=== PATIENT | female | born 1975 | race Caucasian/White ===

== ENCOUNTER 2016-11-08 08:00 | Outpatient (CLI) | payer BC ==
[2016-09-20 16:27] VITALS: BMI 29.0
[~2016-11-08 08:00] MED LIST: AMITIZA24 MCG PO; BUSPAR 15 MG TA15 MG PO; MOBIC7.5 MG PO; RELPAX40 MG PO; SYNTHROID50 MCG PO; SYNTHROID75 MCG PO; XANAX0.25 MG PO; ZANAFLEX4 MG PO; ZYRTEC10 MG PO
== END 2016-11-08 23:59 | disposition home or self-care (01) ==
LOC: D.MAMMO 08:00
DX: R92.8 Other abnormal and inconclusive findings on diagnostic imaging of breast (principal)

== ENCOUNTER 2017-08-10 14:59 | Emergency (ER) | payer BC ==
[2016-09-20 16:27] VITALS: BMI 29.0
[2017-08-10 15:32] LABS: BASOPHILS 0.3 % (0-2); EOSINOPHILS 1.8 % (0-7); HEMOGLOBIN 14.4 g/dL (12-16); IMMATURE GRANULOCYTES 0.1 % (0-5); LYMPHOCYTES 36.5 % (15-50); MCH 32.5 pg (26.0-34.0); MCHC 33.5 g/dL (31.0-37.0); MCV 97.1 fL (80.0-100.0); MONOCYTES 5.2 % (2-11); NEUTROPHILS 56.1 % (40-80); RBC 4.43 10x6/uL (4.00-5.40); RDW 12.6 % (11.5-14.5); WBC 6.7 10x3/uL (4.8-10.8)
[2017-08-10 15:33] LABS: PLATELET COUNT 221 10x3/uL (130-400)
[2017-08-10 15:42] LABS: APPEARANCE CLEAR (CLEAR); BILIRUBIN NEGATIVE (NEGATIVE); COLOR YELLOW (YELLOW); GLUCOSE NEGATIVE (NEGATIVE); KETONE NEGATIVE (NEGATIVE); NITRITE NEGATIVE (NEGATIVE); PROTEIN NEGATIVE (NEGATIVE); SPECIFIC GRAVITY 1.015 (1.005-1.020); UROBILINOGEN NORMAL (NORMAL)
[2017-08-10 15:43] LABS: RED CELLS - URINE OCC /hpf (0-5); WHITE CELLS - URINE OCC /hpf (0-5)
[2017-08-10 15:44] LABS: BACTERIA FEW /hpf (NONE SEEN); EPITHELIAL CELLS 0-5 /hpf (0-5)
[2017-08-10 17:07] LABS: ALBUMIN 4.5 g/dL (3.4-5.0); ANION GAP 12.4 mmol/L (8-16); BILIRUBIN - TOTAL 0.31 mg/dL (0.2-1.3); CALCIUM 9.6 mg/dL (8.5-10.1); CARBON DIOXIDE 29.6 mmol/L (21.0-32.0); PROTEIN - SERUM 7.6 g/dL (6.4-8.2)
[2017-08-17] MEDS ORDERED: ESTRACE 0.5 MG0.5 MG PO (13:44)
== END 2017-08-10 19:20 | disposition home or self-care (01) ==
LOC: D.ER 14:59
PROVIDERS: Emergency Medicine; Physician Assistant
DX: K80.20 Calculus of gallbladder without cholecystitis without obstruction (principal); R10.11 Right upper quadrant pain

== ENCOUNTER 2017-08-20 08:31 | Day surgery (SDC) | payer BC ==
[~2017-08-20] VITALS: Ht 170.2 cm; Wt 80.5 kg
[2017-08-20] VITALS (10 sets, daily range): BP systolic 94–138; BP diastolic 32–75; BMI 27.8
[~2017-08-20 08:31] MED LIST changes: +ESTRACE 0.5 MG0.5 MG PO
[2017-08-20 09:25] LABS: HEMOGLOBIN 15.2 g/dL (12-16); MCH 32.6 pg (26.0-34.0); MCHC 33.8 g/dL (31.0-37.0); MCV 96.6 fL (80.0-100.0); MEAN PLATELET VOLUME 8.9 fL (7.4-10.4); RBC 4.66 10x6/uL (4.00-5.40); RDW 12.9 % (11.5-14.5); WBC 5.6 10x3/uL (4.8-10.8)
[2017-08-20] MEDS ORDERED: PROBIOTIC1 EAC1 PO (09:39)
[2017-08-20 13:00] LABS: MCH 32.6 pg (26.0-34.0); MCHC 33.6 g/dL (31.0-37.0); MEAN PLATELET VOLUME 9.1 fL (7.4-10.4); PLATELET COUNT 256 10x3/uL (130-400); RDW 12.8 % (11.5-14.5)
[2017-08-20 13:10] LABS: HEMATOCRIT 28.9 % (36.0-48.0); HEMOGLOBIN 9.7 g/dL (12-16); RBC 2.98 10x6/uL (4.00-5.40); WBC 8.7 10x3/uL (4.8-10.8)
[2017-08-20 14:14] LABS: EOSINOPHILS 2 % (0-7); LYMPHOCYTES 46 % (15-50); MONOCYTES 6 % (2-11); NEUTROPHILS 45 % (40-80)
[2017-08-20 14:15] LABS: PLATELET ESTIMATE NORMAL
--- NOTE | 2017-08-20 14:45 | NUR ---
RECEIVED TO ROOM 2215 FROM RECOVERY ROOM VIA. VSS. SCDs TO BLE. LAP SITES X4. ORIENTED TO ROOM AND CALL LIGHT SYSTEM. CUP OF ICE WATER GIVEN TO PATIENT. CARE PLAN REVIEWED. [place] PLACED IN FOR MEASUREMENT OF URINE. FAMILY AT BEDSIDE. VOCATIONAL SCHOOL TEACHER INITIATED. CALL LIGHT IN REACH. WILL CONTINUE WITH PLAN OF CARE.
--- NOTE | 2017-08-20 14:48 | OP ---
PATIENT NAME: STEPHANIA DELANEY MEDICAL RECORD: [id number] :73 LOCATION:[id number] ADMISSION DATE: SURGEON: MP CHRISTOPHER MD DATE OF OPERATION: 08/20/2017 DATE OF OPERATION: 08/20/2017 SURGEON: Mp Christopher MD PREOPERATIVE DIAGNOSES: 1. Symptomatic cholelithiasis. 2. Right upper quadrant pain. POSTOPERATIVE DIAGNOSES: 1. Symptomatic cholelithiasis. 2. Right upper quadrant pain. PROCEDURE PERFORMED: Laparoscopic cholecystectomy, exploratory laparotomy. ANESTHESIA: General. COMPLICATIONS: None. SPECIMENS: Gallbladder. Case was clean contaminated. ESTIMATED BLOOD LOSS: 750 cc. ANESTHESIA: General. OPERATIVE COURSE: After consent was obtained, the patient was taken to the operating room and placed in the supine position on the operating table. Next, general anesthesia was given via endotracheal intubation after a timeout was performed that confirmed the correct patient and procedure. The abdomen was prepped and draped in typical sterile fashion. Local anesthetic was injected just above the umbilicus. A stab incision was made with 11-blade scalpel. Using a 5-mm bladeless optical trocar, the abdomen was entered under direct laparoscopic vision. Adequate pneumoperitoneum was achieved. As the abdominal cavity was inspected, there was noted there was a mesenteric vessel injury. Two 5-mm trocars were then placed in the right lateral quadrant. The vessel was controlled with direct pressure with laparoscopic instruments. The vessel injury was able to be repaired laparoscopically while holding pressure, a small midline incision was made where the previous umbilical trocar was. Luis retractor was placed. The abdomen was then copiously irrigated and suctioned. The mesenteric vessel injury was isolated. Hemostasis was obtained once control of the vessel was obtained using 3-0 Vicryl suture. Once this was complete, the abdomen was again copiously irrigated and suctioned. An Luis retractor was placed in the midline incision, a Gelport was placed. A trocar was placed through the Gelport. The patient was placed in the steep reverse Trendelenburg position. An 11-mm trocar was placed in the subxiphoid position. The fundus of the gallbladder was then grasped and retracted cephalad. The infundibulum was grasped and retracted laterally. The peritoneum was incised using electrocautery. The gallbladder was dissected until the critical view was obtained, cystic lateral, cystic artery medial, liver in the posterior window. OPERATIVE REPORT [id number] STEPHANIA DELANEY Three clips were placed in the proximal cystic duct, 1 clip distal and 2 clips were placed in the proximal cystic artery, 1 clip distal. The duct and artery were then transected with laparoscopic Metzenbaum scissors. The remaining portion of the gallbladder was dissected off the liver bed using electrocautery. Once complete, the abdomen was desufflated, Gelport was removed. The gallbladder specimen was removed through the midline incision and sent for permanent pathology. At this time, the abdomen was copiously irrigated and suctioned. The area of mesenteric injury was again inspected, it was monitored for approximately 5 minutes, there were no further signs of bleeding. The abdomen was reinsufflated. The liver bed was meticulously irrigated and suctioned. There was no evidence of bleeding, no evidence of bile leak, no evidence of bowel injury. At this time, all remaining instruments were removed. The abdomen was desufflated. The Gelport was removed. The fascia was closed with a #1 looped PDS. Subcutaneous tissue was reapproximated using 3-0 Vicryl suture. All skin incisions were closed with 4-0 Monocryl, Mastisol and Steri-Strips. At the end of the case, all needle and instrument counts were correct. No complications occurred. The patient was extubated and transferred to the PACU in stable condition. TRANSINT:[id number] Voice Confirmation ID: [id number] DOCUMENT ID: [id number] MP CHRISTOPHER MD at 1448 CC: [id number] DICTATION DATE: 08/20/17 1345 AIR ROUTE CONTROLLER: 08/20/17 1438 [facility] [address] [place] [address]
--- NOTE | 2017-08-20 16:30 | NUR ---
PROTONIX 40 MG SIVP. STATES SHE IS HAVING VERY BAD GAS PAINS. EXPLAINED TO PATIENT THAT SHE NEEDS TO GET UP AND WALK IN HALLWAYS AND ONE OF US CAN WALK WITH HER. STATES SHE IS TOO WEAK AND DIZZY TO GET UP. I EXPLAINED TO HER THAT LATER SHE WOULD HAVE TO WALK BECAUSE THE EARLIER SHE WALKS THE BETTER. PATIENT VERBALIZED UNDERSTANDING.
[2017-08-20 17:01] LABS: HEMATOCRIT 31.2 % (36.0-48.0); HEMOGLOBIN 10.2 g/dL (12-16); MCH 32.5 pg (26.0-34.0); MCHC 32.7 g/dL (31.0-37.0); MEAN PLATELET VOLUME 8.9 fL (7.4-10.4); RBC 3.14 10x6/uL (4.00-5.40); RDW 12.9 % (11.5-14.5)
[2017-08-20 17:17] LABS: MCV 99.4 fL (80.0-100.0)
[2017-08-20 17:48] LABS: ANION GAP 15.1 mmol/L (8-16); CARBON DIOXIDE 21.3 mmol/L (21.0-32.0); CREATININE - SERUM 0.9 mg/dL (0.6-1.3); POTASSIUM - SERUM 3.4 mmol/L (3.5-5.1)
[2017-08-20 17:51] LABS: CALCIUM 6.8 mg/dL (8.5-10.1)
--- NOTE | 2017-08-20 18:21 | NUR ---
HAS NOT VOIDED. EXPLAINED TO PATIENT THAT SHE HAS 4-6 MORE HOURS TO VOID. VERBALIZED UNDERSTANDING. SCDs TO BLE. FAMILY IN ROOM. CALL LIGHT IN REACH. WILL CONTINUE WITH PLAN OF CARE.
--- NOTE | 2017-08-20 20:02 | NUR ---
PATIENT RESTING IN BED WITH FAMILY AT BEDSIDE AND DENIES NEEDS AT THIS TIME. BED IN LOWEST POSITION AND CALL LIGHT WITHIN REACH. ENCOURAGED THE FAMILY AND PATIENT TO CALL IF SHE HAS NEEDS.
--- NOTE | 2017-08-20 20:19 | NUR ---
PATIENT REFUSED MOM STATING SHE HAD DIARRHEA ON SUNDAY AND HAD 12 BM'S
--- NOTE | 2017-08-20 22:56 | NUR ---
SPOKE WITH [employer] AND FAXED ORDER FOR CALCIUM GLUCONATE
[2017-08-20 23:38] LABS: HEMATOCRIT 26.7 % (36.0-48.0); HEMOGLOBIN 9.1 g/dL (12-16); MCH 32.5 pg (26.0-34.0); MCHC 34.1 g/dL (31.0-37.0); MEAN PLATELET VOLUME 8.6 fL (7.4-10.4); RBC 2.8 10x6/uL (4.00-5.40); RDW 12.8 % (11.5-14.5)
[2017-08-20 23:40] LABS: MCV 95.4 fL (80.0-100.0); WBC 11.6 10x3/uL (4.8-10.8)
[2017-08-21 01:21] VITALS: BP 108/59; Ht 170.2 cm; Wt 80.5 kg
[2017-08-21 04:00] VITALS: BP 104/53
[2017-08-21 06:15] LABS: HEMATOCRIT 24.3 % (36.0-48.0); HEMOGLOBIN 8.2 g/dL (12-16); MCH 32.3 pg (26.0-34.0); MCHC 33.7 g/dL (31.0-37.0); MCV 95.7 fL (80.0-100.0); MEAN PLATELET VOLUME 8.7 fL (7.4-10.4); RBC 2.54 10x6/uL (4.00-5.40); RDW 12.9 % (11.5-14.5); WBC 9.4 10x3/uL (4.8-10.8)
[2017-08-21 06:29] LABS: ANION GAP 14.2 mmol/L (8-16); CALCIUM 7.9 mg/dL (8.5-10.1); CARBON DIOXIDE 23.1 mmol/L (21.0-32.0); CREATININE - SERUM 0.9 mg/dL (0.6-1.3)
[2017-08-21 06:30] LABS: POTASSIUM - SERUM 4.3 mmol/L (3.5-5.1)
--- NOTE | 2017-08-21 08:00 | NUR ---
AWAKE AND ALERT. ORIENTED X3. C/O HEADACHE THIS AM. WILL MONITOR. LUNGS ARE CLEAR BILATERALLY, NO COUGH NOTED. SKIN IS INTACT WITHOUT REDNESS EXCEPT INCISIONS TO ABDOMEN WHICH ARE DRY AND INTACT WITHOUT REDNESS. IV TO LEFT HAND IS PATENT WITHOUT REDNESS AT INSERTION SITE. SL TO RIGHT HAND REDDENED. D/C WITH CATHETER INTACT. WARM MOIST HEAT APPLIED TO AREA. WILL MONITOR. DENIES NEEDS.
[2017-08-21 08:20] VITALS: BP 138/71
--- NOTE | 2017-08-21 09:15 | NUR ---
REQUESTED AND GIVEN ONE HYDROCODONE PO FOR C/O ABDOMINAL PAIN LEVEL 5. WILL MONITOR.
--- NOTE | 2017-08-21 10:00 | NUR ---
RESTING QUIETLY. DENIES NEEDS.
[2017-08-21 11:37] VITALS: BP 115/68
--- NOTE | 2017-08-21 12:15 | NUR ---
LUNCH SERVED IN ROOM. ATE ALL SHE WANTED WITHOUT NAUSEA OR PAIN.
[2017-08-21 13:13] LABS: BASOPHILS 0.3 % (0-2); EOSINOPHILS 0.5 % (0-7); HEMATOCRIT 23.6 % (36.0-48.0); IMMATURE GRANULOCYTES 0.3 % (0-5); LYMPHOCYTES 25.3 % (15-50); MCH 32.5 pg (26.0-34.0); MCHC 33.9 g/dL (31.0-37.0); MCV 95.9 fL (80.0-100.0); MEAN PLATELET VOLUME 8.9 fL (7.4-10.4); MONOCYTES 4.9 % (2-11); NEUTROPHILS 68.7 % (40-80); PLATELET COUNT 203 10x3/uL (130-400); RBC 2.46 10x6/uL (4.00-5.40); WBC 7.7 10x3/uL (4.8-10.8)
[2017-08-21] MEDS ORDERED: HYDROCODON-ACE1 EAC7 PO (13:23)
[2017-08-21 14:00] VITALS: BP 105/65
[2017-08-21 14:15] VITALS: BP 110/63
--- NOTE | 2017-08-21 15:00 | NUR ---
DISCHARGED TO HOME AMBULATORY WITH FAMILY. DISCHARGE INSTRUCTIONS GIVEN BOTH VERBALLY AND WRITTEN. ALL QUESTIONS ANSWERED. PATIENT VERBALIZED UNDERSTANDING OF SAME. NEW PRESCRIPTIONS GIVEN TO PATIENT. IV TO LEFT WRIST D/C WITH CATHETER INTACT. ALL BELONGINGS WITH PATIENT.
== END 2017-08-21 15:00 | disposition home or self-care (01) ==
LOC: D.OPS 08:31 → D.PAN 11:00 → D.OPS 11:00 → D.MS 14:08 → D.OPS 08-21 15:00
PROVIDERS: Anesthesiology; Surgery
DX: K80.20 Calculus of gallbladder without cholecystitis without obstruction (principal); R10.11 Right upper quadrant pain; Z01.812 Encounter for preprocedural laboratory examination

== ENCOUNTER 2017-08-24 13:19 | Observation (INO) | payer BC ==
[~2017-08-24] VITALS: Ht 170.2 cm; Wt 79.8 kg
[~2017-08-24 13:19] MED LIST changes: +HYDROCODON-ACE1 EAC7 PO; +PROBIOTIC1 EAC1 PO
[2017-08-24 15:08] LABS: BASOPHILS 0.3 % (0-2); EOSINOPHILS 4.4 % (0-7); IMMATURE GRANULOCYTES 0.2 % (0-5); MCH 32.7 pg (26.0-34.0); MCHC 33.3 g/dL (31.0-37.0); MEAN PLATELET VOLUME 8.4 fL (7.4-10.4); MONOCYTES 5.7 % (2-11); NEUTROPHILS 67.4 % (40-80); RBC 2.45 10x6/uL (4.00-5.40); RDW 13.4 % (11.5-14.5); WBC 6.3 10x3/uL (4.8-10.8)
[2017-08-24 15:18] LABS: PLATELET COUNT 283 10x3/uL (130-400)
[2017-08-24 15:31] LABS: ALBUMIN 3.5 g/dL (3.4-5.0); ALKALINE PHOSPHATASE 67 U/L (46-116); ALT (SGPT) 25 U/L (10-68); APPEARANCE CLEAR (CLEAR); BILIRUBIN NEGATIVE (NEGATIVE); BILIRUBIN - TOTAL 1.01 mg/dL (0.2-1.3); CALC OSMOLALITY 282 mosm/kg (275-300); CALCIUM 8.8 mg/dL (8.5-10.1); CARBON DIOXIDE 28.3 mmol/L (21.0-32.0); CHLORIDE - SERUM 105 mmol/L (98-107); COLOR YELLOW (YELLOW); CREATININE - SERUM 0.7 mg/dL (0.6-1.3); GLUCOSE 113 mg/dL (74-106); GLUCOSE NEGATIVE (NEGATIVE); KETONE NEGATIVE (NEGATIVE); NITRITE NEGATIVE (NEGATIVE); POTASSIUM - SERUM 3.5 mmol/L (3.5-5.1); PROTEIN NEGATIVE (NEGATIVE); PROTEIN - SERUM 6.8 g/dL (6.4-8.2); SODIUM 143 mmol/L (136-145); UREA NITROGEN 4 mg/dL (7-18); UROBILINOGEN NORMAL (NORMAL); eGFR NON AFRICAN AMERICAN > 90 mL/min (90-120)
[2017-08-24 15:39] LABS: BACTERIA FEW /hpf (NONE SEEN); EPITHELIAL CELLS 0-5 /hpf (0-5); RED CELLS - URINE 0-5 /hpf (0-5)
[2017-08-24] MEDS ORDERED: FERROUS FUMARA324 MG PO (23:27)
[2017-08-24 23:28] VITALS: BP 121/59; BMI 26.7
[2017-08-25] VITALS: BP 121/59
[2017-08-25 04:00] VITALS: BP 125/69
[2017-08-25 06:55] LABS: BASOPHILS 0.4 % (0-2); EOSINOPHILS 4.3 % (0-7); HEMATOCRIT 21.7 % (36.0-48.0); LYMPHOCYTES 19.2 % (15-50); MCH 32.6 pg (26.0-34.0); MCHC 33.2 g/dL (31.0-37.0); MCV 98.2 fL (80.0-100.0); MEAN PLATELET VOLUME 8.2 fL (7.4-10.4); MONOCYTES 7.8 % (2-11); NEUTROPHILS 68.3 % (40-80); PLATELET COUNT 238 10x3/uL (130-400); RBC 2.21 10x6/uL (4.00-5.40); RDW 13.4 % (11.5-14.5); WBC 5.6 10x3/uL (4.8-10.8)
[2017-08-25 07:04] LABS: HEMOGLOBIN 7.2 g/dL (12-16)
[2017-08-25 07:21] LABS: CALC OSMOLALITY 278 mosm/kg (275-300); CALCIUM 8.2 mg/dL (8.5-10.1); CARBON DIOXIDE 25.7 mmol/L (21.0-32.0); CHLORIDE - SERUM 105 mmol/L (98-107); CREATININE - SERUM 0.6 mg/dL (0.6-1.3); GLUCOSE 109 mg/dL (74-106); POTASSIUM - SERUM 3.9 mmol/L (3.5-5.1); SODIUM 141 mmol/L (136-145); UREA NITROGEN 5 mg/dL (7-18); eGFR NON AFRICAN AMERICAN > 90 mL/min (90-120)
--- NOTE | 2017-08-25 08:00 | NUR ---
ASSESSED AT THE TIME OF ADMISSION. PT IS ALERT AND ORIENTED, ABLE TO VERBALIZE NEEDS. HER STAYED WITH HER. DURING THE NIGHT SHE COMPLAINED ABOUT A SEVERE HEADACHE BUT WHEN OFFERED MORPHINE SHE REFUSED. STATED SHE HAD DEMEROL IN THE ER AND THOUGHT IT MADE IT WORSE. EARLIER THIS MORNING SHE REQUESTED NAUSEA MEDS AND RECEIVED IT. AT ABOUT 0600 THIS MORNING HER RELATIVE CAME IN AND ASKED IF WE WOULD CALL THE MD AND ASK FOR RELPAX FOR HER HEADACHE. WE CALLED AND GOT AN ORDER AND THE RUBBER PRODUCTION MACHINE OPERATOR WAS UNABLE TO GET IT SO WHEN PHARM CAME IN WE CALLED AND RECEIVED IT FROM THEM. THE PATIENT AND FAMILY THEN ASKED WHAT THE LAB RESULTS WERE AND WHEN THEY FOUND HER HEMOGLOBIN WAS DOWN TO 7.2 THEY BECAME UPSET AND DEMANDED TO BE TRANSFERED TO [facility]. DR CHRISTOPHER WAS CALLED WITH THE CRITICAL LAB AND THEN TOLD THAT THE PT WANTED TO BE TRANSFERED TO [facility]. HE SSTATED THIS WAS OK WITH HIM AND THE RUBBER PRODUCTION MACHINE OPERATOR WAS ADVISED. FAMILY AND PT WERE WORRIED ABOUT HER VITAL SIGNS AND THEY WERE TAKEN. T 98.9 HR 74 R 22 BP 127/56.
[2017-08-25 10:10] VITALS: BP 117/58
[2017-08-25 13:39] VITALS: BP 122/40
[2017-08-25 14:39] VITALS: Ht 170.2 cm; Wt 79.8 kg
--- NOTE | 2017-08-25 18:55 | NUR ---
PATIENT SITTING UP IN BED WITH IV INTACT. NO COMPLAINTS. RECIEVING 2ND UNIT OF BLOOD. NO OCMPLAINTS OR SIGNS OF DISTRESS. VS STABLE. CALL LIGHTW ITHIN REACH.
--- NOTE | 2017-08-25 21:05 | NUR ---
PATIENT RESTING IN BED WITH AT BEDSIDE. NO VISIBLE SIGNS OF DISTRESS. BED IN LOWEST POSITION AND CALL LIGHT WITHIN REACH. ENCOURAGED THE PATIENT TO CALL IF SHE HAS NEEDS.
[2017-08-26] VITALS: BP 105/70
[2017-08-26 04:00] VITALS: BP 108/63
[2017-08-26 06:03] LABS: BASOPHILS 0.3 % (0-2); EOSINOPHILS 4.9 % (0-7); MCH 32.4 pg (26.0-34.0); MCHC 34.5 g/dL (31.0-37.0); MEAN PLATELET VOLUME 8.6 fL (7.4-10.4); MONOCYTES 10.1 % (2-11); NEUTROPHILS 63.7 % (40-80); PLATELET COUNT 244 10x3/uL (130-400); RDW 16.1 % (11.5-14.5)
[2017-08-26 06:12] LABS: HEMATOCRIT 29.6 % (36.0-48.0); HEMOGLOBIN 10.2 g/dL (12-16); RBC 3.15 10x6/uL (4.00-5.40); WBC 7.3 10x3/uL (4.8-10.8)
[2017-08-26 06:27] LABS: CALC OSMOLALITY 280 mosm/kg (275-300); CALCIUM 8.2 mg/dL (8.5-10.1); CARBON DIOXIDE 26.7 mmol/L (21.0-32.0); CHLORIDE - SERUM 105 mmol/L (98-107); CREATININE - SERUM 0.6 mg/dL (0.6-1.3); GLUCOSE 130 mg/dL (74-106); POTASSIUM - SERUM 3.7 mmol/L (3.5-5.1); SODIUM 141 mmol/L (136-145); UREA NITROGEN 6 mg/dL (7-18); eGFR NON AFRICAN AMERICAN > 90 mL/min (90-120)
--- NOTE | 2017-08-26 07:00 | NUR ---
REPORT RECIEVED ASSUMED CARE. PATIENT IN BED WITH I VINTACTN. NO COMPLAINTS. CALL LIGHT WITHIN REACH.
[2017-08-26 08:31] VITALS: BP 111/50
[2017-08-26] MEDS ORDERED: CYCLOBENZAPRINE10 MG PO (08:43)
--- NOTE | 2017-08-26 09:35 | NUR ---
PATIENT IN BED WITH NO COMPLAINTS. IV REMOVED WITH CATH TIP INTACT. CALL LIGHT WITHIN REACH. AWAITING DC.
== END 2017-08-26 12:15 | disposition home or self-care (01) ==
LOC: D.ER 13:19 → D.MS 22:05 → OBSVTIME 22:05 → D.MS 08-26 12:15
PROVIDERS: Emergency Medicine; Family Medicine; ADMIT Surgery
DX: D62 Acute posthemorrhagic anemia (principal); Z90.49 Acquired absence of other specified parts of digestive tract

== ENCOUNTER 2019-03-10 16:10 | Emergency (ER) | payer BC ==
[~2019-03-10] VITALS: Ht 170.2 cm; Wt 86.4 kg
[~2019-03-10 16:10] MED LIST changes: +CYCLOBENZAPRINE10 MG PO; +FERROUS FUMARA324 MG PO
[2019-03-10 17:23] VITALS: Ht 170.2 cm; Wt 86.4 kg
[2019-03-10] MEDS ORDERED: NAPROSYN500 MG PO (18:54)
[2019-03-10] MEDS ORDERED: CYCLOBENZAPRINE10 MG PO (18:54)
[2019-03-10 19:35] VITALS: BP 131/56
== END 2019-03-10 19:36 | disposition home or self-care (01) ==
LOC: D.ER 16:10
DX: S33.5XXA Sprain of ligaments of lumbar spine, initial encounter (principal); X50.0XXA Overexertion from strenuous movement or load, initial encounter; Y93.89 Activity, other specified; Y92.89 Other specified places as the place of occurrence of the external cause; M62.838 Other muscle spasm

== ENCOUNTER 2020-06-24 17:00 | Outpatient (CLI) | payer BC ==
[2019-03-10 17:23] VITALS: BMI 29.8
[~2020-06-24 17:00] MED LIST changes: +NAPROSYN500 MG PO
== END 2020-06-24 23:59 | disposition home or self-care (01) ==
LOC: D.MAMMO 17:00
PROVIDERS: ATTEND Obstetrics & Gynecology
DX: Z12.31 Encounter for screening mammogram for malignant neoplasm of breast (principal)